=== PATIENT | male | born 1955 | race Caucasian/White ===

== ENCOUNTER → 2021-12-16 | Outpatient (CLI) | payer OTHER ==
--- NOTE | 2021-12-16 09:56 | KCIC ---
Coronary artery calcium score dated December 16, 2021. No comparison available. Clinical Indication: Hypercholesterolemia. Calcium screening. Technical factors: High resolution, computed tomography of the heart was performed with ECG gating and suspended respira tion. No contrast material was administered. Post processing was performed on the 3-D computer [facility] using diastolic phase images to measure the amount of coronary vascular calcium. Calcium scorin g was performed utilizing the [place] Method. PQRS compliance Statement One or more of the following individualized dose reduction techniques were utilized for this study: 1. Automated exposure control 2. Adjustment of the mA and/or kV according to patient size 3. Use of iterative reconstruction technique Results: Thorax: There is ectasia of the ascending aorta measuring up to 4 cm in greatest caliber. No other significan t abnormality. Coronary arteries: Left main coronary artery: 96.8 Left anterior descending coronary artery: 174.2 Left circumflex coronary artery: 123.8 Right coronary artery: 113.1 Total coronary artery calcium score: 507.9 Information is based on an analysis of the coronary arteries only. Calcium deposits do not correspond directly to the percentage of narrowing of the arteries. They do correlate directly to the amount of coronary artery plaque and to the risk of future coronary artery disease. These calcium deposits usu ally begin to form years before any symptoms develop. Early detection and modification of risk factor s, such as smoking and cholesterol intake, can slow the progress of coronary artery disease. The results should be discussed with your physician taking into account other risk factors such as ag e, gender, family history, diabetes, smoking or high cholesterol levels. Should you ever experience chest pain, difficulty breathing, discomfort radiating into your neck or a rm, or discomfort combined with lightheadedness, sweating, fainting or nausea, you should seek prompt medical attention. A high calcium score may be consistent with a moderate to high risk of cardiovascular events within t he 2-5 years. Conclusions: 1. Coronary atherosclerosis is present, extensive. 2. High risk of cardiovascular event within the next 2 to 5 years. 3. High probability of stenotic (potentially flow-limiting) or occlusive coronary artery disease. 4. Ectasia of the ascending aorta measuring up to 4 cm in greatest caliber. Recommendations: 1. Strongly consider further cardiac evaluation for pre-clinical coronary heart disease. 2. [place] aggressive cardiovascular risk factor modification as indicated based on risk profile. Additional supporting information concerning the findings and recommendation contained within this report can be found in the consensus statements on coronary vascular calcium published by the [place] [employer] and [place] [employer] 5 Conference (Circulation 1996 ; 94: 4622-8518; J Am [employer]ier Cardiol 2000; 36: 326-340 and Circulation 2000; 101: 111-116). Electronically signed by: Peter Arias MD (12/16/2021 9:53 AM) [id number]
== END ==
LOC: KCIC CT 08:21
PROVIDERS: ATTEND Family Medicine
DX: I25.10 Atherosclerotic heart disease of native coronary artery without angina pectoris (principal); I77.819 Aortic ectasia, unspecified site; E78.00 Pure hypercholesterolemia, unspecified
CPT/HCPCS: 75571